=== PATIENT | female | born 1940 | race Caucasian/White ===

== ENCOUNTER → 2016-12-23 | Day surgery (SDC) | payer OTHER ==
[~2016-12-23] MED LIST: ACETAMINOPHEN650 M3 PO; ALBUTEROL1.25 MG/3 IH; ALPRAZOLAM PO; AMLODIPINE BES2.5 MG PO; AMLODIPINE BESYL5 MG PO; ASPIRIN PO; ASPIRIN81 MG PO; CELEXA PO; CELEXA20 MG PO; COLACE PO; EVISTA60 MG PO; FENOFIBRATE134 MG PO; FERROUS GL325 ( 36 ) PO; FLONASE 0.05% N16 G1; FUROSEMIDE40 MG PO; HCTZ PO; HYDROCODON-ACE1 EAC5 PO; LIPITOR PO; LISINOPRIL5 MG PO; LORTAB 7.5-3251 EACH PO; MAIL ORDER PHARMACY; MIRTAZAPINE30 MG PO; NEXIUM PO; NORVASC PO; NORVASC2.5 MG PO; PERCOCET5/325 PO; POTASSIUM CHLO10 ME1 PO; PREMARIN PO; PROTONIX PO; SYMBICORT INH; SYNTHROID PO; VITAMIN D2; VITAMIN D2400 UNIT PO; ZETIA PO; ZOCOR20 MG PO; ZOFRAN8 MG PO
--- NOTE | ~2016-12-23 | OR ---
Unit #: [id number] #: [id number] Patient: ERNA NORTON [id number] [address] [id number] MR#: [id number] NAME: ERNA NORTON ROOM: Date of Procedure: 12/23/2016 Admission Date: 12/23/2016 Surgeon: Robert Gould M.D. : 1940 Attending Physician: Robert Gould M.D. Primary Care Physician: Nupur Sen M.D. OPERATIVE REPORT PREOPERATIVE DIAGNOSIS Anemia. POSTOPERATIVE DIAGNOSIS Anemia. PROCEDURES PERFORMED 1. Esophagogastroduodenoscopy. 2. Biopsy of antrum for Helicobacter pylori testing. 3. Colonoscopy to cecum. ANESTHESIA Monitored anesthesia care. FINDINGS The patient was found on upper endoscopy to have mild gastritis. On colonoscopy, the patient was found to have sigmoid diverticulosis and mild internal hemorrhoids. SPECIMENS Sent to pathology. COMPLICATIONS None apparent. CONDITION The patient tolerated the procedure well. INDICATIONS FOR PROCEDURE The patient is a 76-year-old white female, who was recently found to have anemia. She presents at this time for evaluation by upper and lower endoscopy. DESCRIPTION OF PROCEDURE After obtaining informed consent, the patient was brought to the endoscopy suite and after adequate monitored anesthesia care, had the endoscope placed through the mouth into the upper esophagus under direct vision. It was advanced to the second and third portion of the duodenum without difficulty with the lumen always in view. The duodenum was normal as was the duodenal bulb. The pylorus opened normally. There was some mild distal gastritis present and a biopsy was obtained for Helicobacter pylori testing. On retroflexion back to the GE junction, the patient was found Unit #: [id number] #: [id number] Patient: ERNA NORTON to have no abnormality found in the proximal third, middle third, or incisura. On pulling back above the GE junction, there was no stenosis, stricture, or neoplasm seen. The remaining portion of the esophagus was within normal limits. Laryngeal structures were grossly normal as viewed from above. At this point in time, the colonoscope was placed through the anus and slowly advanced to the level of the cecum without difficulty with the lumen always in view. The cecum was normal as was the ileocecal valve, ascending colon, hepatic flexure, transverse colon, splenic flexure, and descending colon. The sigmoid colon had moderate diverticulosis present. No other abnormalities were seen. The rectosigmoid and rectum were all within normal limits. On retroflexion to the anorectal junction, there were some mild internal hemorrhoids seen. The scope was removed without difficulty. The patient tolerated the procedure well and went from the endoscopy suite to recovery area in stable condition. RECOMMENDATIONS Diverticular sheet given. Gastroesophageal reflux sheet given. High-fiber diet, lots of liquids, tucks or wipes p.r.n. Call Tuesday for pathology. My office will make arrangements for the patient be seen by fairground operator for evaluation of anemia. Dictated by... Jamal Porter/krissy TD: 12/23/2016 11:09 JOB #: [id number] CC: [facility] OPERATIVE REPORT Page 1 of 1 X Robert Gould MD X PROCEDURE OPERATIVE NOTE
== END | disposition home or self-care (01) ==
LOC: COPS 06:56
DX: K57.30 Diverticulosis of large intestine without perforation or abscess without bleeding (principal); K29.70 Gastritis, unspecified, without bleeding; K64.8 Other hemorrhoids; D64.9 Anemia, unspecified; E03.9 Hypothyroidism, unspecified; K21.9 Gastro-esophageal reflux disease without esophagitis; M19.90 Unspecified osteoarthritis, unspecified site; I10 Essential (primary) hypertension; Z87.891 Personal history of nicotine dependence; Z88.2 Allergy status to sulfonamides; Z88.5 Allergy status to narcotic agent; Z79.899 Other long term (current) drug therapy; Z90.710 Acquired absence of both cervix and uterus; Z90.49 Acquired absence of other specified parts of digestive tract; Z96.641 Presence of right artificial hip joint; Z98.890 Other specified postprocedural states
CPT/HCPCS: 87077